=== PATIENT | male | born 1985 | race Caucasian/White ===

== ENCOUNTER 2016-08-23 12:54 | Inpatient (IN) | payer OTHER ==
[~2016-08-23] VITALS: Ht 185.4 cm; Wt 69.5 kg
[2016-08-23 12:59] VITALS: BP 130/78; PULSE 94; RESP 16; O2SAT 100
--- NOTE | 2016-08-23 14:31 | ED.REPORT ---
HPI-Extremity Problem Lower Date of Service Aug 23, 2016 ED Provider: Doc,Ed MD History of Present Illness: started 5 days ago, on antibiotics clindamycin 300 mg 4 times a day. swelling has decreased by 1/2. went to a walk in clinic yesterday, advised to go to the ER. fever of 100.2 denies nausea vomiting or flu . up to date on tdap, primary care is yanci at [facility] Nursing Notes Stated Complaint: POSSBILE CELLULITIS OF LEG Chief Complaint: Extremity Trauma Allergies: Coded Allergies: Penicillins (Verified Allergy, Intermediate, Hives, 08/23/16) Sulfa (Sulfonamide Antibiotics) (Verified Allergy, Intermediate, Hives, ) No Active Prescriptions or Reported Meds General Time Seen by MD: 14:31 Chief Complaint Leg injury right Hx Obtained From: Patient Past Medical History Past Medical History Denies: Asthma Denies: Atrial fibrillation, Atrial flutter Past Surgical History denies Smoking History Current Every Day Smoker (2 packs a week for 1.5 years) Social History Alcohol Use: Denies alcohol use Drug Use: Denies drug use Other Social History: Occupation in [employer], no work or school 08/23/2016 reporting used heroin 2 days ago, this was reported to the nurse 08/23/2016 Ambulatory Status Independent Review of Systems Basic Review of Systems Eyes: Vision NL, No discharge GI: No abdominal pain, No anorexia, No nausea, No vomiting Allergy / Immune: No allergy Physical Exam Initial Vital Signs Vital Signs (First) Date Time Temp Pulse Resp B/P Pulse Ox O2 Delivery O2 Flow Rate FiO2 08/23/16 12:59 36.4 94 16 130/78 100 Room Air Initial VS: Reviewed, Vital signs normal General/Constitutional: Well-developed, Well-nourished Head / Eyes: Atraumatic, Normocephalic, PERRL ENT: Mucous membranes moist, Conjunctiva normal, No scleral icterus Neck: Supple, Non-tender, Full range of motion Respiratory: Breath sounds normal, Clear to auscultation, No respiratory distress Cardiovascular: Regular rate & rhythm, Heart sounds normal, Intact distal pulses Abdomen / GI: Soft, Non-tender, No guarding, No rebound, No distention Back: No CVA tenderness Lymphatic: No lymphadenopathy Upper Extremities: Vascular intact, Neuro intact, No swelling, No tenderness Skin: Warm, Dry, No cyanosis Neurologic: Alert, Oriented, Nonfocal Psychiatric: Mood/affect normal, Behavior normal, Normal thought content right leg has 2 sores with fibrin formation one on foot and one on leg. Erthyma extends from from toes to mid thigh. circumfential erthyma at knee Right Ankle: Positive: Swelling present..., Tenderness present... (Moderate) General/Constitutional: Awake, Alert, No acute distress Respiratory / Chest: Atraumatic, Breath sounds NL, Breath sounds = bilat, No respiratory distress Cardiovascular: Heart rate NL, Regular rhythm, Heart sounds NL, No gallop Interpretation & Diagnostics Lab Results Interpretation Result Diagram: 08/23/16 1520 08/23/16 1520 Test 08/23/16 15:20 White Blood Count 11.6th/mm3 (3.8-10.1) Red Blood Count 4.21mil/mm3 (4.40-5.80) Hemoglobin 11.5g/dL (13.8-17.2) Hematocrit 34.5% (41.0-50.0) Mean Corpuscular Volume 81.9fL (81-100) Mean Corpuscular Hemoglobin 27.3pg (27.0-35.0) Mean Corpuscular Hemoglobin Concent 33.3% (32.0-37.0) Red Cell Distribution Width 12.8% (12.3-15.4) Platelet Count 315bil/L (150-400) Neutrophils (%) (Auto) 68.1% (40-74) Lymphocytes (%) (Auto) 17.3% (14-46) Monocytes (%) (Auto) 12.2% (4-12) Eosinophils (%) (Auto) 1.6% (0-5) Basophils (%) (Auto) 0.3% (0-3) Sodium Level 137mEq/L (134-144) Potassium Level 4.3mEq/L (3.5-5.2) Chloride Level 98mEq/L (97-108) Carbon Dioxide Level 30mmol/L (18-29) Blood Urea Nitrogen 12mg/dL (6-20) Creatinine 0.72mg/dL (0.76-1.27) Estimat Glomerular Filtration Rate 136mL/min (>59) Glucose Level 91mg/dL (60-99) Lactic Acid Level 2.4mmol/L (0.4-2.0) Calcium Level 8.4mg/dL (8.5-10.1) Total Bilirubin 0.2mg/dL (0.0-1.2) Aspartate Amino Transf (AST/SGOT) 15U/L (0-50) Alanine Aminotransferase (ALT/SGPT) 14U/L (0-44) Alkaline Phosphatase 79U/L (25-150) Total Protein 6.8g/dL (6.4-8.4) Albumin 3.3g/dL (3.4-5.0) US Soft Tissue/Musculoskeletal DICATIONS: ? blood clot right leg TECHNIQUE: Real-time imaging, as well as color and pulse Doppler interrogation, were performed of the lower extremity deep veins from the inguinal ligament to the popliteal fossa. COMPARISON: None. FINDINGS: The deep veins are normally compressible, and free of intraluminal thrombus. Color and pulse Doppler demonstrate normal phasic intraluminal flow. There is normal augmentation response to distal compression maneuver. IMPRESSION: 1. No deep venous thrombosis identified within the right lower extremity. 2. Solid-appearing hypoechoic soft tissue mass within the right groin anterior to the vessels measuring 4.1 x 1.1 cm. Findings are nonspecific which could be related to an abnormal lymph node or other neoplastic process versus inflammatory process. Recommend clinical correlation and followup. Dictated by: Dre Avila [facility] Interpreted: Kat Hawley MD on 08/23/2016 at 16:23 Transcribed by: PRIYA on 08/23/2016 at 16:28 Approved by: Kat Hawley M.D. on 08/23/2016 at 17:10 Re-Eval/Medical Decision Med Decision/Clinical Course 31 year male with heroin use with cellulitis, exam is not consistent with compartment syndrome or superficial thromplebitis. Discharge & Departure Impression: Primary Impression: Cellulitis Site of cellulitis of extremity: lower extremity Laterality: right Additional Impression: Drug abuse Disposition: ADMITTED TO HOSPITAL Referrals: NOPCP (PCP) EDSupervising Provider for APC: Justin Rivera MD Attending Statement I discussed with AMIE Sandy and evaluated patient independently and agree with plan as above. Admit for IV abx for cellulitis after failing outpatient abx. Marleni Sandy Aug 23, 2016 14:31 Justin Rivera MD Aug 23, 2016 17:48
[2016-08-23] MEDS ORDERED: 0.9% Sodium Chloride 1,000 ML IV ONE (14:45)
[2016-08-23] MEDS ORDERED: cefTRIAXone Inj 2,000 MG in Dextrose 5% Minibag Plus 50 ML IV ONE (14:45)
[2016-08-23 15:27] LABS: BASOPHILS % (AUTO) 0.3 % (0-3); EOSINOPHILS % (AUTO) 1.6 % (0-5); MONOCYTES % (AUTO) 12.2 % (4-12); Mean Corpuscular Hemoglobin 27.3 pg (27.0-35.0); Mean Corpuscular Volume 81.9 fL (81-100); NEUTROPHILS % (AUTO) 68.1 % (40-74); Platelet Count 315 bil/L (150-400)
--- NOTE | 2016-08-23 16:28 | DRSVH ---
PROCEDURE: US VEINOUS LEG DUPLEX UNILATERAL, RIGHT INDICATIONS: ? blood clot right leg TECHNIQUE: Real-time imaging, as well as color and pulse Doppler interrogation, were performed of the lower extr emity deep veins from the inguinal ligament to the popliteal fossa. COMPARISON: None. FINDINGS: The deep veins are normally compressible, and free of intraluminal thrombus. Color and pu lse Doppler demonstrate normal phasic intraluminal flow. There is normal augmentation response to di stal compression maneuver. IMPRESSION: 1. No deep venous thrombosis identified within the right lower extremity. 2. Solid-appearing hypoechoic soft tissue mass within the right groin anterior to the vessels measuri ng 4.1 x 1.1 cm. Findings are nonspecific which could be related to an abnormal lymph node or other neoplastic process versus inflammatory process. Recommend clinical correlation and followup. Dictated by: Dre KELLY Interpreted: Kat Hawley MD on 08/23/2016 at 16:23 Transcribed by: PRIYA on 08/23/2016 at 16:28 Approved by: Kat Hawley M.D. on 08/23/2016 at 17:10
[2016-08-23] MEDS ORDERED: HYDROcodone-APAP 5-325 mg Tablet PO ONE (16:40)
--- NOTE | 2016-08-23 16:44 | DRSVH ---
PROCEDURE: X-RAY RIGHT KNEE, THREE VIEWS ([id number]) INDICATIONS: redness swelling TECHNIQUE: 3 views of the knee were acquired. COMPARISON: None. FINDINGS: Bones: No fractures or dislocations. No suspicious bony lesions. Soft tissues: Mild joint effusion. No suspicious soft tissue calcifications. IMPRESSION: Mild effusion. No visualized acute fracture or dislocation. However, if clinical concern and/or pain persist, short interval imaging followup in 7-10 days is recommended, as occult injury ca nnot be definitively excluded. Dictated by: Kat Hawley M.D. on 08/23/2016 at 16:42 Approved by: Kat Hawley M.D. on 08/23/2016 at 16:43
[2016-08-23] MEDS ORDERED: Clindamycin Inj 900 MG in IV Premix 1 EACH IV ONE (16:50)
[2016-08-23 17:20] VITALS: BP 109/67; PULSE 87; RESP 12; O2SAT 100
[2016-08-23] MEDS ORDERED: Alum-Mag Hydrox-Simeth 30 mL Suspension PO PRN (17:20)
[2016-08-23] MEDS ORDERED: Ondansetron 2 mg/mL 2 mL Inj IVPUSH PRN (17:20)
--- NOTE | 2016-08-23 18:00 | NUR ---
Admit Pt arrived to OSC unit, from ED, via [facility] at 1800. A&Ox3, ORTEZ - gen weak to RLE d/t cellulitis, IV patent to Right FA, Pt able to scoot self over to bed from [facility], RLE elevated on pillow, Admit completed, Belongings in corner of room, Pt oriented to room and call light, Snacks brought over to pt by SN as kitchen closed for dinner at 1830 when pt attempted to call, No open wound noted to RLE - edematous with two abrasion sites anteriorly - lawson and top of foot (margins marked in ED), Pt is current IV heroine user - behavior contract outside room (NOC RN aware), Housekeeping notified of need to have sharps container removed - has yet to be done, Care continues.
[2016-08-23] MEDS: Lactated Ringer's 1,000 ML IV SCH (18:37)
[2016-08-23 18:47] VITALS: BP 115/70; PULSE 68; RESP 16; O2SAT 100
--- NOTE | 2016-08-23 19:37 | PCM.HPMED ---
Subjective Date of Service Aug 23, 2016 Primary Provider: Admitting Physician: Mick Villa MD Primary Care Physician: Nopchuy Attending Physician: Mick Villa MD Allergies Coded Allergies: Penicillins (Verified Allergy, Intermediate, Hives, 08/23/16) Sulfa (Sulfonamide Antibiotics) (Verified Allergy, Intermediate, Hives, ) PMH Social History Hx Alcohol Use: No (not since 2009) Hx Substance Use: Yes (IV Heroine - last dose this AM) Smoking Status: Current Every Day Smoker Exam Vital Signs Vital Sign - Last Date Time Temp Pulse Resp B/P Pulse Ox O2 Delivery O2 Flow Rate FiO2 08/23/16 18:47 68 16 115/70 100 Room Air 08/23/16 17:20 36.3 Lab and Diagnostics Result Diagram: 08/23/16 1520 08/23/16 1520 Assessment & Plan 1. Right Lower extremity Cellulitis 2. Heroine dependence admit for IV antibiotics . Patient failed outpatient treatment with PO antibiotics Start Clindamycin 600 mg IV every 8H . Wound ( On healing ulcer in lateral aspect of right ankle) has no appearance of MRSA . IV hydration with NS @ 75 ml/hr x 24 hours . Percocet for pain and hopefully that may help prevent opiates withdrawal. Patient uses heroin 3-4 times daily. He failed inpatient rehab twice he said . Lovenox for DVT prophylaxis . US negative for DVT. He will likely need 2 days of antibiotic before any significant improvement of his cellulitis, then we can switch him to PO but I doubt he will stay in the hospital for that long . Time spent 55 minutes Mick Villa MD Aug 23, 2016 19:37
[2016-08-23] MEDS: oxyCODONE-Acetamin 5-325 mg Tablet PO PRN ×2 (19:51→23:32)
[2016-08-23] MEDS ORDERED: cloNIDine 0.1 mg Tablet PO ONE (22:20)
[2016-08-23 23:50] VITALS: BP 116/74; PULSE 65; RESP 18; O2SAT 100
[2016-08-24] MEDS: Clindamycin Inj 600 MG in IV Premix 1 EACH IV SCH ×3 (00:30→17:19)
[2016-08-24 04:34] VITALS: BP 111/75; PULSE 70; RESP 16; O2SAT 95
[2016-08-24] MEDS: oxyCODONE-Acetamin 5-325 mg Tablet PO PRN ×4 (04:56→21:50)
[2016-08-24] MEDS: Lactated Ringer's 1,000 ML IV SCH ×2 (04:58→15:40)
--- NOTE | 2016-08-24 06:06 | NUR ---
Behavior contract Discussed hospital policy and importance of maintaining continuity for all pts who exhibit risky/drug use behavior. Pt is unhappy with treatment but agrees to policies; belongings locked in room closet, behavior contract read, understood, and signed. All behaviors have been appropriate although pt states he is likely to leave with or without D/C orders in am. After reporting increased withdrawal symptoms, obtained order for clonidine, given with effect of allowing pt to sleep majority of night; one dose Ativan still available if needed. Percocet every 4 hours for pain and withdrawal symptoms. Has not been out of bed, has not voided, reports no urge; pt knows to notify staff when he does void. Hourly rounding ongoing.
[2016-08-24 08:26] LABS: BASOPHILS % (AUTO) 0.7 % (0-3); EOSINOPHILS % (AUTO) 5.2 % (0-5); MONOCYTES % (AUTO) 15.9 % (4-12); Mean Corpuscular Hemoglobin 27.1 pg (27.0-35.0); Mean Corpuscular Volume 81.6 fL (81-100); Platelet Count 297 bil/L (150-400)
[2016-08-24 11:19] VITALS: BP 131/82; PULSE 69; RESP 16; O2SAT 100
[2016-08-24 13:29] LABS: APPEARANCE,URINE CLEAR (CLEAR,HAZY); COLOR,URINE DARK YELLOW (YELLOW); OCCULT BLOOD,URINE NEGATIVE (NEGATIVE); UROBILINOGEN,URINE NORMAL (NORMAL)
[2016-08-24 15:16] VITALS: BP 132/87; PULSE 59; RESP 16; O2SAT 99
--- NOTE | 2016-08-24 18:25 | NUR ---
Behavior/Pain Pt slept majority of shift, awake intermittently. When asked about pain would state, 'it's okay.' When asked to give a number, "5/10" consistently - not seeming to be a clock watcher as he has been able to sleep soundly. Did not refuse care interventions or medications. No acute issues this shift. Pt saying please and thank you. Care continues.
[2016-08-24 21:33] VITALS: BP 117/70; PULSE 71; RESP 20; O2SAT 100
--- NOTE | 2016-08-24 23:54 | PCM.PNMED ---
Subjective Date of Service Aug 24, 2016 Subjective Patient is sleeping most of the day and has no specific complaints. He states it is feeling better overall. Exam Vital Signs Vital Sign - Last Date Time Temp Pulse Resp B/P Pulse Ox O2 Delivery O2 Flow Rate FiO2 08/24/16 21:33 36.9 71 20 117/70 100 Room Air Intake and Output 08/23/16 08/23/16 08/24/16 Cumulative From/Thru 15:00 23:00 07:00 08/23/16 12:59 - 08/24/16 06:47 Intake Total 1000 ml 1677 ml 2677 ml Output Total 0 ml 0 ml 0 ml Balance 1000 ml 1677 ml 2677 ml Intake Oral 0 ml 600 ml 600 ml IV Total 1000 ml 1077 ml 2077 ml Output Urine Total 0 ml 0 ml 0 ml # Voids 0 0 # Bowel Movements 0 0 0 Exam General: Patient is in no apparent distress and is resting comfortably somnolent in bed. HEENT: Head is atraumatic and normocephalic. Eyes: Pupils are equally round and reactive to light and accommodation. Extraocular muscles are intact. Sclera are white, anicteric. Subconjunctival mucosa is pink. Ears and nose are unremarkable. Oropharynx: There is no mucosal lesions, there is no thrush, there is no pharyngitis. Neck: Is supple, there are no nodes, or masses or tenderness. Chest: Is clear to auscultation and percussion. There are no rales, rhonchi, wheezes or rubs. Heart: Rate, rhythm is regular. There is no murmur, rub or gallop. Abdomen: Good bowel sounds are present. Abdomen is soft, nontender, no organomegaly or masses were appreciated. Extremities: Right lower extremities erythema is improved markedly with almost no residual erythema within the demarcation lines. There is an old scab which appears to be healing well on the anterior distal third of his right lower extremity There is little to no edema. Neurologic: There are no focal neurological deficits. Cranial nerves II through XII are intact. There are no sensory or motor deficits. Psychiatric: Patients mood is calm and shows no sign of agitation at this time. Genital: Deferred Rectal: Deferred Lab and Diagnostics Result Diagram: 08/24/1681908/24/16819 Microbiology Name: BEATRIZLUIGI Age/Sex: 31/M Attend Dr: Mick Villa MD Acct: [id number] Unit: [id number] Status: ADM IN [place] [facility] [place] 1025-1 Re08/23/16 Disch: Specimen: [id number] Collected: 08/23/16 Status: RES Req#: [id number] Received: 08/23/16 Source: BLOOD Sp Desc : NANDO Parmar Dr: Mick Villa MD Ordered: TIERNEY Comments: Collected by Nurse/Unit? Y/N N Procedure Result Verified Site Microbiology FLORA CULTURE BLOOD Preliminary 08/24/16-2246 NO GROWTH AFTER 24 HOURS X-Rays, CTs and MRIs PROCEDURE: X-RAY RIGHT KNEE, THREE VIEWS ([id number]) INDICATIONS: redness swelling TECHNIQUE: 3 views of the knee were acquired. COMPARISON: None. FINDINGS: Bones: No fractures or dislocations. No suspicious bony lesions. Soft tissues: Mild joint effusion. No suspicious soft tissue calcifications. IMPRESSION: Mild effusion. No visualized acute fracture or dislocation. However , if clinical concern and/or pain persist, short interval imaging followup in 7- 10 days is recommended, as occult injury cannot be definitively excluded. Dictated by: Kat Hawley M.D. on 08/23/2016 at 16:42 Approved by: Kat Hawley M.D. on 08/23/2016 at 16:43 PROCEDURE: US VEINOUS LEG DUPLEX UNILATERAL, RIGHT INDICATIONS: ? blood clot right leg TECHNIQUE: Real-time imaging, as well as color and pulse Doppler interrogation, were performed of the lower extremity deep veins from the inguinal ligament to the popliteal fossa. COMPARISON: None. FINDINGS: The deep veins are normally compressible, and free of intraluminal thrombus. Color and pulse Doppler demonstrate normal phasic intraluminal flow. There is normal augmentation response to distal compression maneuver. IMPRESSION: 1. No deep venous thrombosis identified within the right lower extremity. 2. Solid-appearing hypoechoic soft tissue mass within the right groin anterior to the vessels measuring 4.1 x 1.1 cm. Findings are nonspecific which could be related to an abnormal lymph node or other neoplastic process versus inflammatory process. Recommend clinical correlation and followup. Dictated by: Dre KELLY Interpreted: Kat Hawley MD on 08/23/2016 at 16: 23 Transcribed by: PRIYA on 08/23/2016 at 16:28 Approved by: Kat Hawley M.D. on 08/23/2016 at 17:10 Assessment & Plan Patient is a 31-year-old white male with history of intravenous heroin use who developed right lower extremity inflammation which started 5 days ago. The patient was placed on antibiotics with oral clindamycin 300 mg 4 times a day.. The patient's swelling had decreased by 1/2. However, he.went to a walk in clinic the day prior to admission and was advised to go to the ER. Patient was found to have a fever of 100.2. The patient denies nausea vomiting or flu . The patient is up to date on tdap, The patient's primary care physician is Dr. Mclain at [facility] Right Lower extremity Cellulitis with failed outpatient treatment with oral antibiotics -Patient appears to be improving on IV clindamycin. Therefore, will continue current treatment -Continue to monitor closely. Heroine dependence -Patient reports that he is enrolling in a Suboxone program and apparently apparently wants to quit IV drug use -Observe closely for withdrawal - Continue IV hydration with NS @ 75 ml/hr x 24 hours . - Continue Percocet for pain and hopefully that may help prevent opiates withdrawal. Patient uses heroin 3-4 times daily. He failed inpatient rehab twice he said . Continue Lovenox for DVT prophylaxis . US negative for DVT . Disposition: He will need at least 2 days of IV antibiotics before any significant improvement of his cellulitis, then we can switch him to PO but I doubt he will stay in the hospital for that long . Pain Evaluation: Adequate Pain Control GI Prophylaxis: Not indicated VTE Prophylaxis: Sub-Q Enoxaparin Resuscitation Status: CPR: Attempt Resuscitation Abhi Coleman MD Aug 24, 2016 23:54
[2016-08-25] MEDS: Lactated Ringer's 1,000 ML IV SCH ×3 (01:14→19:38)
[2016-08-25] MEDS: Clindamycin Inj 600 MG in IV Premix 1 EACH IV SCH ×4 (01:15→23:58)
[2016-08-25] MEDS: oxyCODONE-Acetamin 5-325 mg Tablet PO PRN ×5 (03:09→22:12)
--- NOTE | 2016-08-25 03:42 | NUR ---
Pain/Leg Pt. has been sleeping throughout most of shift. Pt. has requested PO Percocet so far twice this shift. Pt. rates pain 5/10. Pt. falls back asleep after Perocet is given. Pt.'s right leg is still red and swollen. A scab has formed. Pt. is receiving IV antibiotics for cellulitis. Will continue to monitor.
[2016-08-25 06:17] VITALS: BP 134/85; PULSE 60; RESP 20; O2SAT 99
[2016-08-25 09:53] LABS: BASOPHILS % (AUTO) 0.5 % (0-3); EOSINOPHILS % (AUTO) 2.1 % (0-5); MONOCYTES % (AUTO) 7.4 % (4-12); Mean Corpuscular Hemoglobin 27.4 pg (27.0-35.0); Mean Corpuscular Volume 78.3 fL (81-100); NEUTROPHILS % (AUTO) 66.9 % (40-74); Platelet Count 351 bil/L (150-400)
[2016-08-25 10:29] LABS: Magnesium 1.9 mg/dL (1.6-2.6)
[2016-08-25 11:37] LABS: ERYTHROCYTE SEDIMENTATION RATE 33 mm/hr (0-15)
[2016-08-25 16:09] VITALS: BP 148/83; PULSE 78; RESP 16; O2SAT 100
--- NOTE | 2016-08-25 18:21 | NUR ---
Pain Pt sleeping off and on throughout shift. Asking for pain medications ~4hrs. Stated 4-5/10 pain levels. Swelling and redness decreased in comparison to patient status on arrival/original margins. Staff/pt under impression of discharge tomorrow. Pt calm and cooperative this shift. No acute issues. Care continues.
[2016-08-25 19:56] VITALS: BP 108/63; PULSE 68; RESP 18; O2SAT 99
--- NOTE | 2016-08-25 20:04 | PCM.PNMED ---
Subjective Date of Service Aug 25, 2016 Subjective Patient is resting quietly in his room during the day with the lights off appears to be trying to sleep most of the day. He has no new complaints. His right lower extremity is feeling better. Exam Vital Signs Vital Sign - Last Date Time Temp Pulse Resp B/P Pulse Ox O2 Delivery O2 Flow Rate FiO2 08/25/16 16:09 36.8 78 16 148/83 100 Room Air Intake and Output 08/24/16 08/24/16 08/25/16 Cumulative From/Thru 15:00 23:00 07:00 08/23/16 12:59 - 08/25/16 06:22 Intake Total 1920 ml 2663 ml 7260 ml Output Total 50 ml 50 ml Balance 1870 ml 2663 ml 7210 ml Intake Oral 800 ml 1436 ml 2836 ml IV Total 1120 ml 1227 ml 4424 ml Output Urine Total 50 ml 50 ml # Voids 1 2 3 # Bowel Movements 0 0 0 Exam General: Patient is in no apparent distress and is again resting comfortably somnolent in bed. HEENT: Head is atraumatic and normocephalic. Eyes: Pupils are equally round and reactive to light and accommodation. Extraocular muscles are intact. Sclera are white, anicteric. Subconjunctival mucosa is pink. Ears and nose are unremarkable. Oropharynx: There is no mucosal lesions, there is no thrush, there is no pharyngitis. Neck: Is supple, there are no nodes, or masses or tenderness. Chest: Is clear to auscultation and percussion. There are no rales, rhonchi, wheezes or rubs. Heart: Rate, rhythm is regular. There is no murmur, rub or gallop. Abdomen: Good bowel sounds are present. Abdomen is soft, nontender, no organomegaly or masses were appreciated. Extremities: Right lower extremities erythema continues to improve with almost no residual erythema. There is no palpable lymphadenopathy in the right groin. There is an old scab which appears to be healing well on the anterior distal third of his right lower extremity There is little to no edema. Neurologic: There are no focal neurological deficits. Cranial nerves II through XII are intact. There are no sensory or motor deficits. Psychiatric: Patients mood is calm and shows no sign of agitation at this time. He apparently has threatened to leave AGAINST MEDICAL ADVICE on several occasions. However, he then just goes back to sleep. Genital: Deferred Rectal: Deferred Lab and Diagnostics Result Diagram: 08/25/1694708/25/16947 Microbiology Name: BEATRZILUIGI Age/Sex: 31/M Attend Dr: Mick Villa MD Acct: [id number] Unit: [id number] Status: ADM IN Location: [facility] [place] 1025-1 Re08/23/16 Disch: Specimen: [id number] Collected: 08/23/16 Status: RES Req#: [id number] Received: 08/23/16 Source: BLOOD Sp Desc : NANDO Parmar Dr: Mick Villa MD Ordered: TIERNEY Comments: Collected by Nurse/Unit? Y/N N Procedure Result Verified Site Microbiology FLORA CULTURE BLOOD Preliminary 08/24/16-2246 NO GROWTH AFTER 24 HOURS X-Rays, CTs and MRIs PROCEDURE: X-RAY RIGHT KNEE, THREE VIEWS ([id number]) INDICATIONS: redness swelling TECHNIQUE: 3 views of the knee were acquired. COMPARISON: None. FINDINGS: Bones: No fractures or dislocations. No suspicious bony lesions. Soft tissues: Mild joint effusion. No suspicious soft tissue calcifications. IMPRESSION: Mild effusion. No visualized acute fracture or dislocation. However , if clinical concern and/or pain persist, short interval imaging followup in 7- 10 days is recommended, as occult injury cannot be definitively excluded. Dictated by: Kat Hawley M.D. on 08/23/2016 at 16:42 Approved by: Kat Hawley M.D. on 08/23/2016 at 16:43 PROCEDURE: US VEINOUS LEG DUPLEX UNILATERAL, RIGHT INDICATIONS: ? blood clot right leg TECHNIQUE: Real-time imaging, as well as color and pulse Doppler interrogation, were performed of the lower extremity deep veins from the inguinal ligament to the popliteal fossa. COMPARISON: None. FINDINGS: The deep veins are normally compressible, and free of intraluminal thrombus. Color and pulse Doppler demonstrate normal phasic intraluminal flow. There is normal augmentation response to distal compression maneuver. IMPRESSION: 1. No deep venous thrombosis identified within the right lower extremity. 2. Solid-appearing hypoechoic soft tissue mass within the right groin anterior to the vessels measuring 4.1 x 1.1 cm. Findings are nonspecific which could be related to an abnormal lymph node or other neoplastic process versus inflammatory process. Recommend clinical correlation and followup. Dictated by: Dre KELLY Interpreted: Kat Hawley MD on 08/23/2016 at 16: 23 Transcribed by: PRIYA on 08/23/2016 at 16:28 Approved by: Kat Hawley M.D. on 08/23/2016 at 17:10 Assessment & Plan Patient is a 31-year-old white male with history of intravenous heroin use who developed right lower extremity inflammation which started 5 days ago. The patient was placed on antibiotics with oral clindamycin 300 mg 4 times a day.. The patient's swelling had decreased by 1/2. However, he.went to a walk in clinic the day prior to admission and was advised to go to the ER. Patient was found to have a fever of 100.2. The patient denies nausea vomiting or flu . The patient is up to date on tdap, The patient's primary care physician is Dr. Mclain at [facility] Right Lower extremity Cellulitis with failed outpatient treatment with oral antibiotics(clindamycin) -Patient appears to be improving on IV clindamycin. Therefore, will continue current treatment -Continue to monitor closely. Heroine dependence -Patient reports that he is enrolling in a Suboxone program and apparently apparently wants to quit IV drug use -Observe closely for withdrawal. Apparently according to the staff the patient has threatened to leave AGAINST MEDICAL ADVICE several times over last 24-48 hours. However, so far each time he is falling asleep again - Continue IV hydration with NS @ 75 ml/hr x 24 hours . - Continue Percocet for pain and hopefully that may help prevent opiates withdrawal. Patient uses heroin 3-4 times daily. He failed inpatient rehab twice he said Trauma to distal right anterior lawson with scab formation that looks like it is healing well. -Continue close observation. . Continue Lovenox for DVT prophylaxis . US negative for DVT . Disposition: He will need at least 1-2 days of IV antibiotics before any significant improvement of his cellulitis, then we can switch him to PO but I doubt he will stay in the hospital for that long . Pain Evaluation: Adequate Pain Control GI Prophylaxis: Not indicated VTE Prophylaxis: Sub-Q Enoxaparin Resuscitation Status: CPR: Attempt Resuscitation Abhi Coleman MD Aug 25, 2016 20:04
[2016-08-26] MEDS: oxyCODONE-Acetamin 5-325 mg Tablet PO PRN ×2 (02:54→09:01)
[2016-08-26 04:18] VITALS: BP 152/88; PULSE 62; RESP 16; O2SAT 100
[2016-08-26 06:22] LABS: BASOPHILS % (AUTO) 0.2 % (0-3); EOSINOPHILS % (AUTO) 2.3 % (0-5); MONOCYTES % (AUTO) 10.1 % (4-12); Mean Corpuscular Hemoglobin 27.2 pg (27.0-35.0); Mean Corpuscular Volume 81.1 fL (81-100); NEUTROPHILS % (AUTO) 61.2 % (40-74); Platelet Count 353 bil/L (150-400)
[2016-08-26 06:45] LABS: Magnesium 1.8 mg/dL (1.6-2.6); Phosphorus 3.7 mg/dL (2.5-4.9)
[2016-08-26 07:03] LABS: ERYTHROCYTE SEDIMENTATION RATE 24 mm/hr (0-15)
[2016-08-26 08:53] VITALS: BP 144/90; PULSE 61; RESP 16; O2SAT 100
[2016-08-26] MEDS: Clindamycin Inj 600 MG in IV Premix 1 EACH IV SCH (09:00)
[2016-08-26] MEDS: Lactated Ringer's 1,000 ML IV SCH (09:00)
--- NOTE | 2016-08-26 12:42 | PCM.DIMED ---
Discharge Instructions Date of Service Aug 26, 2016 Dates of Hospitalization Aug 23, 2016 at 17:02 Discharge Diagnosis Discharge Diagnosis Cellulitis of Right Lower Extremity Diet No restrictions Activity No restrictions Call your provider Fever or Chills, Shortness of breath, Bleeding, Chest pain, Vomitting, Excessive diarrhea, Weakness (unilateral), Other Patient Instructions Follow-up with PCP in: 1 week (Follow up with PCP Chloe Thomas at [facility] in [place]) Abhi Coleman MD Aug 26, 2016 12:42
[2016-08-26] MEDS ORDERED: CLIN-78 PO (12:47)
--- NOTE | 2016-08-26 13:19 | NUR ---
Discharge Patient ambulated off unit in a stable condition. IV DC'd intact, new prescription of Clindamycin PO discussed with next due times -- electronically sent to preferred pharmacy -- patient verbalized understanding. Follow up with PCP in 1 week discussed -- verbalized understanding. Closet padlocked, unlocked by security, all personal belongings with patient.
--- NOTE | 2016-08-26 13:33 | NUR ---
Social Work- Screening/Discharge Data: Pt is a 31 year old male admitted 08/23/16 for cellulitis of the right leg per H&P. Pts insurance is [facility] [employer] [facility]. Pt does not have a PCP. SW met with pt at bedside to discuss discharge planning. Pt was alert and oriented x3. Pt resides in [place] where he remains independent with his ADLs. Pt has no DME and drives. Pt has no HH or SNF history. Pt declined chemical dependency assessment. Pt does not have DPOA, declined information. Pt is medically stable for discharge today. Pt to discharge home with mother to transport via POV. No discharge needs. Assessment: [place]. Plan: Pt declined chemical dependency assessment. Pt to discharge today. Pt to discharge home with mother to transport via POV. No discharge needs. ANJELICA Ridley
--- NOTE | 2016-08-26 21:35 | PCM.DC.MED ---
Discharge Summary Date of Service Aug 26, 2016 Dates of Hospitalization Date of Hospital Admission Aug 23, 2016 at 17:02 Date of Discharge: Aug 26, 2016 Providers: Admitting Physician: Mick iVlla MD Primary Care Physician: Nopchuy Attending Physician: Mick Villa MD Diagnosis at Time of Discharge Diagnosis at Time of Discharge Cellulitis of Right Lower Extremity Procedures XRay, CTs & MRIs PROCEDURE: X-RAY RIGHT KNEE, THREE VIEWS ([id number]) INDICATIONS: redness swelling TECHNIQUE: 3 views of the knee were acquired. COMPARISON: None. FINDINGS: Bones: No fractures or dislocations. No suspicious bony lesions. Soft tissues: Mild joint effusion. No suspicious soft tissue calcifications. IMPRESSION: Mild effusion. No visualized acute fracture or dislocation. However , if clinical concern and/or pain persist, short interval imaging followup in 7- 10 days is recommended, as occult injury cannot be definitively excluded. Dictated by: Kat Hawley M.D. on 08/23/2016 at 16:42 Approved by: Kat Hawley M.D. on 08/23/2016 at 16:43 PROCEDURE: US VEINOUS LEG DUPLEX UNILATERAL, RIGHT INDICATIONS: ? blood clot right leg TECHNIQUE: Real-time imaging, as well as color and pulse Doppler interrogation, were performed of the lower extremity deep veins from the inguinal ligament to the popliteal fossa. COMPARISON: None. FINDINGS: The deep veins are normally compressible, and free of intraluminal thrombus. Color and pulse Doppler demonstrate normal phasic intraluminal flow. There is normal augmentation response to distal compression maneuver. IMPRESSION: 1. No deep venous thrombosis identified within the right lower extremity. 2. Solid-appearing hypoechoic soft tissue mass within the right groin anterior to the vessels measuring 4.1 x 1.1 cm. Findings are nonspecific which could be related to an abnormal lymph node or other neoplastic process versus inflammatory process. Recommend clinical correlation and followup. Dictated by: Dre VALENCIA Interpreted: Kat Hawley MD on 08/23/2016 at 16: 23 Transcribed by: PRIYA on 08/23/2016 at 16:28 Approved by: Kat Hawley M.D. on 08/23/2016 at 17:10 Brief History Patient is a 31-year-old white male with history of intravenous heroin use who developed right lower extremity inflammation which started 5 days ago. The patient was placed on antibiotics with oral clindamycin 300 mg 4 times a day.. The patient's swelling had decreased by 1/2. However, he.went to a walk in clinic the day prior to admission and was advised to go to the ER. Patient was found to have a fever of 100.2. The patient denies nausea vomiting or flu . The patient is up to date on tdap, The patient's primary care physician is Dr. Mclain at [facility]. The patient was admitted to the hospital service for further evaluation and treatment. Hospital Course Patient is a 31-year-old white male with history of intravenous heroin use who developed right lower extremity inflammation which started 5 days ago. The patient was placed on antibiotics with oral clindamycin 300 mg 4 times a day.. The patient's swelling had decreased by 1/2. However, he.went to a walk in clinic the day prior to admission and was advised to go to the ER. Patient was found to have a fever of 100.2. The patient denies nausea vomiting or flu . The patient is up to date on tdap, The patient's primary care physician is Dr. Mclain at [facility]. The patient was admitted to the hospital service for further evaluation and treatment. # Right Lower extremity Cellulitis with failed outpatient treatment with oral antibiotics(clindamycin) -Patient appears to be improving on IV clindamycin. This was continued throughout his hospitalization. Will discharge home on oral clindamycin now that the cellulitis has almost completely resolved on gross inspection. Recommend 10 more days of oral antibiotics. -Continue to monitor closely. # Heroine dependence -Patient reports that he is enrolling in a Suboxone program and apparently apparently wants to quit IV drug use -Observe closely for withdrawal. Apparently according to the staff the patient has threatened to leave AGAINST MEDICAL ADVICE several times over last 24-48 hours. However, so far each time he is falling asleep again - Patient was on IV hydration with NS @ 75 ml/hr x 24 hours during the hospitalization . -.Patient uses heroin 3-4 times daily. He failed inpatient rehab twice he said. He does not sound very convincingly tells me that he wants to quit. Patient was advised to quit now before he destroys his veins loses a limb gets heart valve infection or brain infection or hepatitis or HIV or suffers an untimely . # Trauma to distal right anterior lawson with scab formation that looks like it is healing well. - Patient stated that he was hiking and ran into a blackberry you - Continue close observation. # Solid-appearing hypoechoic soft tissue mass within the right groin anterior to the vessels measuring 4.1 x 1.1 cm by ultrasound. - Findings are nonspecific which could be related to an abnormal lymph node or other neoplastic process versus inflammatory process. Recommend clinical correlation and followup. - At the time of discharge there is no palpable lymphadenopathy or tenderness in this area. However, I suspect this is simply due to lymphadenopathy due to the cellulitis. - I would recommend follow-up CT scan as an outpatient. . Continue Lovenox for DVT prophylaxis . US negative for DVT . Disposition: He will need at least 1-2 days of IV antibiotics before any significant improvement of his cellulitis, then we can switch him to PO but I doubt he will stay in the hospital for that long . Exam Vital Signs (Last) Date Time Temp Pulse Resp B/P Pulse Ox O2 Delivery O2 Flow Rate FiO2 08/26/16 08:53 36.7 61 16 144/90 100 Room Air Exam General: Patient is in no apparent distress and is again resting comfortably in bed. He is less somnolent today HEENT: Head is atraumatic and normocephalic. Eyes: Pupils are equally round and reactive to light and accommodation. Extraocular muscles are intact. Sclera are white, anicteric. Subconjunctival mucosa is pink. Ears and nose are unremarkable. Oropharynx: There is no mucosal lesions, there is no thrush, there is no pharyngitis. Neck: Is supple, there are no nodes, or masses or tenderness. Chest: Is clear to auscultation and percussion. There are no rales, rhonchi, wheezes or rubs. Heart: Rate, rhythm is regular. There is no murmur, rub or gallop. Abdomen: Good bowel sounds are present. Abdomen is soft, nontender, no organomegaly or masses were appreciated. Extremities: Right lower extremities erythema continues to improve with almost no residual erythema. There is no palpable lymphadenopathy in the right groin. There is an old scab which appears to be healing well on the anterior distal third of his right lower extremity There is little to no edema. Neurologic: There are no focal neurological deficits. Cranial nerves II through XII are intact. There are no sensory or motor deficits. Psychiatric: Patients mood is calm and shows no sign of agitation at this time. He apparently has threatened to leave AGAINST MEDICAL ADVICE on several occasions. However, he then just goes back to sleep. Today he is very anxious to go home on oral antibiotics. Genital: Deferred Rectal: Deferred Test 08/23/16 15:20 08/23/16 21:29 08/24/16 12:40 08/26/16 05:50 Lactic Acid Level 2.4mmol/L (0.4-2.0) Hold Andrews Top Tube Received (Received) Urine Color Dark yellow (YELLOW) Urine Appearance Clear (CLEAR,HAZY) Urine pH 6.0 (5.0-8.0) Urine Specific [place] 1.020 (1.003-1.035) Urine Protein Negativemg/dL (NEG,TRACE) Urine Glucose (UA) Negativemg/dL (NEGATIVE) Urine Ketones Negativemg/dL (NEGATIVE) Urine Occult Blood Negative (NEGATIVE) Urine Nitrite Negative (NEGATIVE) Urine Bilirubin Negative (NEGATIVE) Urine Urobilinogen Normalmg/dL (NORMAL) Urine Leukocyte Esterase Negative (NEGATIVE) Urine RBC 3-10/hpf (0-2) Urine WBC 0-5/hpf (0-5) Urine Epithelial Cells Occasional/hpf (NONE-MOD) Urine Crystals None seen (NONE SEEN) Urine Bacteria None/hpf (NONE-FEW) Urine Hyaline Casts None/lpf (NONE) Urine Granular Casts None seen (NONE SEEN) Urine Waxy Casts None seen (NONE SEEN) Urine Red Blood Cell Casts None seen (NONE SEEN) Urine White Blood Cell Casts None seen (NONE SEEN) Urine Mucus None seen (None Seen) Urine Trichomonas None seen (NONE SEEN) Urine Yeast None (NONE SEEN) Urinalysis Comment None Urine Culture Reflexed Not indicated White Blood Count 9.5th/mm3 (3.8-10.1) Red Blood Count 4.08mil/mm3 (4.40-5.80) Hemoglobin 11.1g/dL (13.8-17.2) Hematocrit 33.1% (41.0-50.0) Mean Corpuscular Volume 81.1fL (81-100) Mean Corpuscular Hemoglobin 27.2pg (27.0-35.0) Mean Corpuscular Hemoglobin Concent 33.5% (32.0-37.0) Red Cell Distribution Width 12.5% (12.3-15.4) Platelet Count 353bil/L (150-400) Neutrophils (%) (Auto) 61.2% (40-74) Lymphocytes (%) (Auto) 25.7% (14-46) Monocytes (%) (Auto) 10.1% (4-12) Eosinophils (%) (Auto) 2.3% (0-5) Basophils (%) (Auto) 0.2% (0-3) Erythrocyte Sedimentation Rate 24mm/hr (0-15) Sodium Level 141mEq/L (134-144) Potassium Level 4.3mEq/L (3.5-5.2) Chloride Level 104mEq/L (97-108) Carbon Dioxide Level 27mmol/L (18-29) Blood Urea Nitrogen 4mg/dL (6-20) Creatinine 0.70mg/dL (0.76-1.27) Estimat Glomerular Filtration Rate 141mL/min (>59) Glucose Level 96mg/dL (60-99) Calcium Level 8.4mg/dL (8.5-10.1) Phosphorus Level 3.7mg/dL (2.5-4.9) Magnesium Level 1.8mg/dL (1.6-2.6) Total Bilirubin 0.2mg/dL (0.0-1.2) Aspartate Amino Transf (AST/SGOT) 17U/L (0-50) Alanine Aminotransferase (ALT/SGPT) 11U/L (0-44) Alkaline Phosphatase 61U/L (25-150) C-Reactive Protein 1.2mg/dL (0.0-0.5) Total Protein 5.9g/dL (6.4-8.4) Albumin 2.7g/dL (3.4-5.0) Microbiology Results Name: LUIGI HENDERSON Age/Sex: 31/M Attend Dr: Mick Villa MD Acct: [id number] Unit: [id number] Status: ADM IN Location: [facility] [place] 1025-1 Re08/23/16 Disch: Specimen: [id number] Collected: 08/23/16 Status: RES Req#: [id number] Received: 08/23/16 Source: BLOOD Sp Desc : NANDO Parmar Dr: Mick Villa MD Ordered: BC Comments: Collected by Nurse/Unit? Y/N N Procedure Result Verified Site Microbiology FLORA CULTURE BLOOD Preliminary 08/24/16 NO GROWTH AFTER 24 HOURS Discharge Medications Discharge Medications Clindamycin (Clindamycin) 300 Mg Capsule 300 MG PO TID Prescribed by: KIMBERLI COLEMAN MD Followup Plan Disposition: Patient is being discharged home. His mother is coming to pick him up. Discharge Diet: No restrictions Discharge Activity: No restrictions Follow-up with PCP in: 1 week (Follow up with PCP Chloe Thomas at [facility] in [place]) Time spent Time spent on discharging this patient was greater than 35 minutes, over half of which was involved in counseling and coordination of care. Abhi Coleman MD Aug 26, 2016 21:35
== END 2016-08-26 13:23 | disposition home or self-care (01) | DRG 603 ==
LOC: SED 12:54 → OSC 17:02
PROVIDERS: ADMIT Internal Medicine; ATTEND Internal Medicine
DX: L03.115 Cellulitis of right lower limb (principal); F11.20 Opioid dependence, uncomplicated; F17.210 Nicotine dependence, cigarettes, uncomplicated